=== PATIENT | male | born 1995 | race American Indian/Alaskan Native ===

== ENCOUNTER 2021-07-09 11:37 | Emergency (ER) | payer SELFPAY ==
--- NOTE | 2021-07-09 14:36 | Emergency Department Report ---
ED General Adult HPI - General Stated complaint: SPIDER BITE/RASHES Time Seen by Provider: 07/09/21 13:21 - History of Present Illness Initial comments: 23-year-old male no significant past medical history reports today with right thumb swelling and drainage due to insect bite that happened yesterday at work. Patient reports draining since yesterday. Patient reports no fever, no chills, no headache, no dizziness. No other acute symptoms reported at this moment. Range of motion is intact and right thumb. Onset/Timin -: Gradual, days(s) Location: upper extremity (right thumb) ED Review of Systems ROS: Stated complaint: SPIDER BITE/RASHES Other details as noted in HPI Constitutional: denies: chills, fever Eyes: denies: eye pain, eye discharge, vision change ENT: denies: ear pain, throat pain Respiratory: denies: cough, shortness of breath, wheezing Cardiovascular: denies: chest pain, palpitations Endocrine: no symptoms reported Gastrointestinal: denies: abdominal pain, nausea, diarrhea Genitourinary: denies: urgency, dysuria Musculoskeletal: other (rigth thumb swelling ). denies: back pain, joint swelling, arthralgia Skin: denies: rash, lesions Neurological: denies: headache, weakness, paresthesias Psychiatric: denies: anxiety, depression Hematological/Lymphatic: denies: easy bleeding, easy bruising ED Past Medical Hx - Past Medical History Previous Medical History?: No ED Physical Exam - General General appearance: alert, in no apparent distress - Head Head exam: Present: atraumatic, normocephalic - Eye Eye exam: Present: normal appearance - ENT ENT exam: Present: mucous membranes moist - Neck Neck exam: Present: normal inspection - Respiratory Respiratory exam: Present: normal lung sounds bilaterally. Absent: respiratory distress - Cardiovascular Cardiovascular Exam: Present: regular rate, normal rhythm. Absent: systolic murmur, diastolic murmur, rubs, gallop - GI/Abdominal GI/Abdominal exam: Present: soft, normal bowel sounds - Rectal Rectal exam: Present: deferred - Extremities Exam Extremities exam: Present: normal inspection - Back Exam Back exam: Present: normal inspection - Neurological Exam Neurological exam: Present: alert, oriented X3 - Psychiatric Psychiatric exam: Present: normal affect, normal mood - Skin Skin exam: Present: warm, dry, intact, normal color. Absent: rash ED Medical Decision Making - Medical Decision Making 23-year-old male no significant past medical history reports today with right thumb swelling and drainage due to insect bite that happened yesterday at work. Patient reports draining since yesterday. Patient reports no fever, no chills, no headache, no dizziness. No other acute symptoms reported at this moment. Range of motion is intact and right thumb. No imaging ordered labs are needed. Patient will be started on Bactrim twice daily for 10 days. Patient also reports having eczema rash. Reports taking nothing [id number] for his rash. Patient informed to use OTC hydrocortisone cream or ointment, as well as to hydrate his skin with topical moisturizing lotion or moisturizing cream. Patient verbalizes understanding and agrees with plan of care. Patient is stable for discharge. Critical care attestation.: If time is entered above; I have spent that time in minutes in the direct care of this critically ill patient, excluding procedure time. ED Disposition Clinical Impression: Insect bite, Acute eczema Disposition: 01 HOME / SELF CARE / HOMELESS Is pt being admited?: No Condition: Stable Referrals: [facility] [Outside] - 3-5 Days
[2021-07-09 14:43] VITALS: BP 114/65
== END 2021-07-09 15:30 | disposition home or self-care (01) ==
LOC: ED 11:37
DX: T14.8XXA Other injury of unspecified body region, initial encounter (principal); L30.9 Dermatitis, unspecified; X58.XXXA Exposure to other specified factors, initial encounter; Y93.9 Activity, unspecified; Y92.89 Other specified places as the place of occurrence of the external cause; Y99.8 Other external cause status
CPT/HCPCS: 99282

== ENCOUNTER 2021-09-27 17:28 | Emergency (ER) | payer SELFPAY ==
[2021-09-27 19:37] VITALS: BP 123/75
--- NOTE | 2021-09-27 22:15 | Emergency Department Report ---
ED Fever HPI - General Chief Complaint: Fever Stated Complaint: COVID SYM PUI?: Yes Time Seen by Provider: 09/27/21 22:07 Source: patient Exam Limitations: no limitations - History of Present Illness Initial Comments: Patient is a 26-year-old male that presents emergency room with cough, increased wheezing, diarrhea, nausea without vomiting. Patient states he wants a COVID test. Patient states he has a positive COVID exposure. Patient dates she has a history of asthma. Patient states he is been using his albuterol more often. Patient states he had fever the first day. Patient states he has had fever since. Patient states his fever started 2 days ago. Patient states his nausea is improving. Patient states his diarrhea is improving. Patient states his cough is the same. Patient states his wheezing is worsening. Patient denies recent travel. Patient denies recent international travel. Patient states he has had an exposure to the novel coronavirus. Patient states he has had sick contacts. Patient states he has not vaccinated against COVID- 19. Fever Severity/Quality: subjective, low grade Fever Therapy HOSE TENDER: Ibuprofen Associated Symptoms: cough, other ED Review of Systems ROS: Stated complaint: COVID SYM Other details as noted in HPI Constitutional: fever, malaise. denies: chills Eyes: denies: eye pain, eye discharge, vision change ENT: denies: ear pain, throat pain Respiratory: see HPI, cough, wheezing. denies: shortness of breath Cardiovascular: denies: chest pain, palpitations Endocrine: no symptoms reported Gastrointestinal: denies: abdominal pain, nausea, diarrhea Genitourinary: denies: urgency, dysuria Musculoskeletal: denies: back pain, joint swelling, arthralgia Skin: denies: rash, lesions Neurological: denies: headache, weakness, paresthesias Psychiatric: denies: anxiety, depression Hematological/Lymphatic: denies: easy bleeding, easy bruising ED Past Medical Hx - Past Medical History Previous Medical History?: Yes Hx Asthma: Yes - Surgical History Past Surgical History?: No - Family History Family history: no significant - Social History Smoking Status: Never Smoker Substance Use Type: None - Medications Home Medications: Home Medications Medication Instructions Recorded Confirmed Last Taken Type Sulfamethoxazole/Trimethoprim 1 each PO BID #20 tab 07/09/21 Unknown Rx [Bactrim DS TAB] Albuterol Mdi (or & Nicu Only) 2 puff IH QID PRN #8.5 gram 09/27/21 Unknown Rx [ProAir HFA Inhaler] Azithromycin [Zithromax Tri-Cosme] 500 mg PO DAILY 3 Days #3 tab 09/27/21 Unknown Rx Ondansetron [Zofran Odt] 4 mg PO Q6HR PRN #15 tab.rapdis 09/27/21 Unknown Rx methylPREDNISolone [Medrol 4MG 4 mg PO DAILY 6 Days #1 pack 09/27/21 Unknown Rx DOSEPAK (21 tabs)] ED Physical Exam - General Limitations: No Limitations General appearance: alert, in no apparent distress - Head Head exam: Present: atraumatic, normocephalic - Eye Eye exam: Present: normal appearance - ENT ENT exam: Present: mucous membranes moist - Neck Neck exam: Present: normal inspection - Respiratory Respiratory exam: Present: normal lung sounds bilaterally. Absent: respiratory distress - Cardiovascular Cardiovascular Exam: Present: regular rate, normal rhythm. Absent: systolic murmur, diastolic murmur, rubs, gallop - GI/Abdominal GI/Abdominal exam: Present: soft, normal bowel sounds - Rectal Rectal exam: Present: deferred - Extremities Exam Extremities exam: Present: normal inspection - Back Exam Back exam: Present: normal inspection - Neurological Exam Neurological exam: Present: alert, oriented X3 - Psychiatric Psychiatric exam: Present: normal affect, normal mood - Skin Skin exam: Present: warm, dry, intact, normal color. Absent: rash ED Course Vital Signs 09/27/21 19:36 Temperature 98.2 F Pulse Rate 60 Respiratory 18 Rate Blood Pressure 123/75 O2 Sat by Pulse 93 Oximetry - Reevaluation(s) Reevaluation #1: I discussed all results and clinical findings with patient. I discussed plan of care with patient. Patient agrees with plan of care. Patient is stable for discharge. Patient will be discharged home. Patient given discharge instructions. Patient voiced understanding of discharge instructions. 09/28/21 00:05 ED Medical Decision Making - Lab Data Result diagrams: 09/27/21 22:20 09/27/21 22:20 - Radiology Data Radiology results: report reviewed XR chest routine 2V INDICATION / CLINICAL INFORMATION: cough.. COMPARISON: None available. FINDINGS: SUPPORT DEVICES: None. HEART /PULMONARY VASCULATURE: No significant abnormality. LUNGS / PLEURA: No significant pulmonary or pleural abnormality. No pneum othorax. ADDITIONAL FINDINGS: No significant additional findings. IMPRESSION: 1. No acute findings. - Medical Decision Making Patient is a 26-year-old male with complaints of fevers, cough, nausea, diarrhea, COVID symptoms. Patient's vital signs are most likely due to COVID- 19. Patient will need outpatient COVID testing. Patient had a CBC and a chemistry done which were essentially unremarkable. Patient had a chest x-ray was negative for acute findings. Patient is stable for discharge. Patient not require any further emergent medical service. Patient does not require in patient service. Patient can be followed up as an outpatient. Patient will require outpatient COVID testing. Patient needs to follow the CDC guidelines for COVID-19. Patient has a history of asthma has been using his inhaler more often. Patient given an albuterol prescription. Patient given Zofran for nausea. Patient tolerated p.o. intake prior to discharge. Patient given Zithromax and Medrol for the bronchitis. I discussed all results and clinical findings with patient. I discussed plan of care with patient. Patient agrees with plan of care. Patient is stable for discharge. Patient will be discharged home. Patient given discharge instructions. Patient voiced understanding of discharge instructions. - Differential Diagnosis COVID, flu, URI, pneumonia, bronchitis, asthma Critical care attestation.: If time is entered above; I have spent that time in minutes in the direct care of this critically ill patient, excluding procedure time. ED Disposition Clinical Impression: Exposure to COVID-19 virus, Nausea Fever Qualifiers: Fever type: unspecified Qualified Code(s): R50.9 - Fever, unspecified Cough Qualifiers: Cough type: acute Qualified Code(s): R05.1 - Acute cough Diarrhea Qualifiers: Diarrhea type: unspecified type Qualified Code(s): R19.7 - Diarrhea, unspecified Asthma exacerbation Qualifiers: Asthma severity: unspecified severity Asthma persistence: unspecified Qualified Code(s): J45.901 - Unspecified asthma with (acute) exacerbation Disposition: 01 HOME / SELF CARE / HOMELESS Is pt being admited?: No Does the pt Need Aspirin: No Condition: Stable Instructions: Asthma, Adult, Fever, Adult, Cough, Adult, [id number], Food Choices to Help Relieve Diarrhea, Adult, Diarrhea, Adult, Nausea, Adult, Prevent the Spread of COVID-19 if You Are Sick - CDC, COVID-19, COVID-19: How to Protect Yourself and Others - [facility] Additional Instructions: Patient to follow-up with primary care in 2 to 3 days. Patient to follow-up for outpatient COVID testing.. Patient to rest. Patient to increase water. Patient to avoid strenuous exercise or heavy lifting until cleared by primary care. Patient to take Tylenol or ibuprofen as needed for pain. Patient to take meds as directed. Patient to return to the ER if condition worsens, changes or new symptoms arise. Patient to quarantine for 10 days. Patient to follow CDC guidelines. Prescriptions: methylPREDNISolone [Medrol 4MG DOSEPAK (21 tabs)] 4 mg PO DAILY 6 Days #1 pack Albuterol Mdi (or & Nicu Only) [ProAir HFA Inhaler] 2 puff IH QID PRN #8.5 gram PRN Reason: Shortness Of Breath Azithromycin [Zithromax Tri-Cosme] 500 mg PO DAILY 3 Days #3 tab Ondansetron [Zofran Odt] 4 mg PO Q6HR PRN #15 tab.rapdis PRN Reason: Nausea And Vomiting Referrals: [facility] MD [Staff Physician] - 2-3 Days Time of Disposition: 23:53
--- NOTE | 2021-09-27 22:40 | XRay Report ---
XR chest routine 2V INDICATION / CLINICAL INFORMATION: cough.. COMPARISON: None available. FINDINGS: SUPPORT DEVICES: None. HEART /PULMONARY VASCULATURE: No significant abnormality. LUNGS / PLEURA: No significant pulmonary or pleural abnormality. No pneumothorax. ADDITIONAL FINDINGS: No significant additional findings. IMPRESSION: 1. No acute findings. Signer Name: Woo Mayers MD Signed: 09/27/2021 10:36 PM Workstation Name: [id number]
[2021-09-27 22:48] LABS: Basophils % (Auto) 0.5 % (0.0-1.8); Eosinophils # (Auto) 0.4 K/mm3 (0.0-0.4); Eosinophils % (Auto) 4.2 % (0.0-4.3); Hematocrit 44.9 % (35.5-45.6); Lymphocytes # (Auto) 3.4 K/mm3 (1.2-5.4); Lymphocytes % (Auto) 35.1 % (13.4-35.0); Mean Corpuscular HGB Conc 33 % (32-34); Mean Corpuscular Volume 98 fl (84-94); Monocytes # (Auto) 0.7 K/mm3 (0.0-0.8); Monocytes % (Auto) 7.3 % (0.0-7.3); Platelet Count 252 K/mm3 (140-440); Red Blood Count 4.58 M/mm3 (3.65-5.03); Red Cell Distribution Width 13.2 % (13.2-15.2)
[2021-09-27 23:07] LABS: Alanine Aminotransferase 15 units/L (7-56); Albumin 4.6 g/dL (3.9-5); BUN/Creatinine Ratio 17; Blood Urea Nitrogen 17 mg/dL (9-20); Calcium 9.5 mg/dL (8.4-10.2); Hemolysis Index 16
== END 2021-09-28 00:24 | disposition home or self-care (01) ==
LOC: ED 17:28
DX: Z20.822 Contact with and (suspected) exposure to COVID-19 (principal); R11.0 Nausea; R50.9 Fever, unspecified; R05.9 Cough, unspecified; R19.7 Diarrhea, unspecified; J45.901 Unspecified asthma with (acute) exacerbation
CPT/HCPCS: 36415; 71046; 80053; 85025; 99283